=== PATIENT | female | born 1965 | race American Indian/Alaskan Native ===

== ENCOUNTER 2018-04-19 07:29 | Inpatient (IN) | payer MEDICAID, OTHER ==
[2018-04-19 08:00] LABS: Hematocrit 36.7 % (30.3-42.9); Hemoglobin 12.7 gm/dl (10.1-14.3); Mean Corpuscular HGB Conc 35 % (30-34); Mean Corpuscular Volume 105 fl (79-97); Platelet Count 182 K/mm3 (140-440); Red Blood Count 3.49 M/mm3 (3.65-5.03); Red Cell Distribution Width 14.1 % (13.2-15.2)
[2018-04-19] MEDS ORDERED: NACL 0.9% 1000 ML 1,000 ML IV ONE ×2 (08:00→09:40)
--- NOTE | 2018-04-19 08:02 | Emergency Department Report ---
HPI - General Chief Complaint: Arrhythmia/Palpitations Time Seen by Provider: 04/19/18 07:55 - HPI HPI: 52-year-old -[place]ian female presents to the emergency department with complaint of a 24-hour history of right lower back pain. She denies any fall, trauma or any event where she realized she may have injured her back. She has some mild discomfort with urination. Patient also presents with a very fast heart rate and does admit to feeling like her heart is racing. She denies any chest pain but says that sometimes she'll have some mild shortness of breath. She denies any cough, fever, nausea, vomiting. No numbness or paresthesias or any other neurological deficits. She has a past medical history of hypertension. She has a primary care physician but cannot currently remember their name. She denies any tobacco or illicit drug use or abuse. She has not taken anything for her symptoms prior to arrival. ED Past Medical Hx - Past Medical History Previous Medical History?: Yes Hx Hypertension: Yes - Surgical History Past Surgical History?: Yes Additional Surgical History: . tonsillectomy. right toe surgery - Social History Smoking Status: Never Smoker Substance Use Type: Alcohol - Medications Home Medications: Home Medications Medication Instructions Recorded Confirmed Last Taken Type Amlodipine Besylate [Norvasc] 10 mg PO QDAY 04/19/18 04/19/18 Unknown History Megestrol [Megace] 10 ml PO BID 04/19/18 04/19/18 Unknown History medroxyPROGESTERone ACETATE 150 mg IM [id number] 04/19/18 04/19/18 Unknown History [Depo-Provera (Contraception)] ED Review of Systems ROS: Stated complaint: LOWER BACK PAIN Other details as noted in HPI Comment: All other systems reviewed and negative Constitutional: denies: chills, fever Eyes: denies: eye pain, vision change ENT: denies: ear pain, throat pain Respiratory: shortness of breath. denies: cough Cardiovascular: palpitations. denies: chest pain Gastrointestinal: denies: abdominal pain, vomiting Genitourinary: dysuria. denies: discharge Musculoskeletal: back pain. denies: arthralgia Skin: denies: rash, lesions Neurological: denies: headache, weakness, numbness, paresthesias Physical Exam - Physical Exam Vital Signs: Vital Signs 04/19/18 07:38 Temperature 98.0 F Pulse Rate 144 H Respiratory 18 Rate Blood Pressure 144/87 O2 Sat by Pulse 100 Oximetry Physical Exam: GENERAL: The patient is well-developed well-nourished. HEENT: Normocephalic. Atraumatic. Patient has moist mucous membranes. EYES: Extraocular motions are intact. Pupils are equal and reactive to light bilaterally. NECK: Supple. Trachea is midline. CHEST/LUNGS: Clear to auscultation. There is no respiratory distress noted. HEART/CARDIOVASCULAR: Regular. There is moderate no tachycardia. There is no obvious murmur. ABDOMEN: Abdomen is soft, nontender. Patient has normal bowel sounds. There is no abdominal distention. SKIN: Skin is warm and dry. NEURO: The patient is awake, alert, and oriented. The patient is cooperative. The patient has no focal neurologic deficits. The patient has normal speech. Cranial nerves II through XII grossly intact. MUSCULOSKELETAL: There is no tenderness or deformity. There is no limitation range of motion. There is no evidence of acute injury. BACK: No midline thoracic or lumbar tenderness to palpation, step-off or deformity. There is some right lateral back pain at the thoracolumbar junction but it is difficult to reproduce to palpation. ED Course Vital Signs 04/19/18 07:38 Temperature 98.0 F Pulse Rate 144 H Respiratory 18 Rate Blood Pressure 144/87 O2 Sat by Pulse 100 Oximetry ED Medical Decision Making - Lab Data Result diagrams: 04/19/18 07:48 04/19/18 07:48 - EKG Data -: EKG Interpreted by Me EKG shows normal: sinus rhythm, axis, intervals, QRS complexes (LVH), ST-T waves Rate: tachycardia (137 bpm) - EKG Data When compared to previous EKG there are: previous EKG unavailable Interpretation: other (sinus tachycardia at 137 bpm, LVH) - Radiology Data Radiology results: report reviewed, image reviewed interpreted by me: Chest x-ray does not show any pneumothorax, pleural effusion, pneumonia or obvious focal consolidation. X-ray of the lumbar spine does not show any fracture, subluxation or any acute process. CTA CHEST: HISTORY: Short of breath, elevated d-dimer. COMPARISON: none. TECHNIQUE: Helical CT in 1.25mm intervals following IV contrast. Pulmonary embolus protocol. Sagittal and coronal reformatted images. Rotational MIP images. FINDINGS: Contrast bolus is slightly limited. Most of the IV contrast is within the systemic arterial circulation. No large central pulmonary embolus is identified. Resolution in the distal small pulmonary arteries is limited. No gross PE is identified. Thyroid gland: Normal. Tracheobronchial tree: Normal. Esophagus: Normal. Heart: Normal. Pericardium: Normal. Mediastinum: There are multiple partially calcified lymph nodes throughout the right paratracheal chain, AP window chain, subcarinal chain and bilateral hilar chains. Lung Betancourt: Mild peribronchial and paraseptal nodularity is identified in both upper lobes, right greater than left. The lower lobes and middle lobe are within normal limits. There is no evidence for pneumonia or suspicious mass. Pleural Spaces: Normal. Musculoskeletal: Intact. Minimal thoracic spondylosis. IMPRESSION: Slightly limited contrast bolus for pulmonary embolus. No pulmonary embolus is detected. Calcified mediastinal lymph nodes and peribronchial nodularity in the upper lobes is identified which is highly suggestive of sarcoid. Please correlate with the patient's clinical presentation. CT HEAD WITHOUT CONTRAST: HISTORY: Headache. TECHNIQUE: Sequential 2.5mm CT images. COMPARISON: none. FINDINGS: Cerebral Parenchyma: Within normal limits. Cerebellum: Within normal limits. Brainstem: Within normal limits. Ventricles: Normal. Sella: Normal. Extra-axial spaces: Normal. Basal Cisterns: Normal. Intracranial Hemorrhage: None. Midline Shift: None. Calvarium: Normal. Sinuses: Normal. Mastoid Air Cells: Normal. Visualized Orbits: Normal. IMPRESSION: Cranial CT scan within normal limits. Transcribed By: TTR Dictated By: PATRICIO COSTA JR, MD Electronically Authenticated By: PATRICIO COSTA JR, MD Signed Date/Time: 04/19/18 0916 - Medical Decision Making This patient came in with some bilateral back pain and came in with moderate to severe tachycardia that started to cause her some palpitations. She denied any chest pain but had some intermittent shortness of breath with it. Labs were mostly unremarkable Except for a slightly elevated and equivocal d-dimer and later the patient left a urine sample that showed a significant urinary tract infection. At this point a lactic acid was elevated. Patient started on antibiotics and cultures were sent. She complained of a intermittent and ongoing headache and therefore a CT scan of the head was done without contrast that did not show any bleed, shift, mass, ischemia or any other acute process. Because of the slightly elevated d-dimer, CT angiography of the chest was done that did not show any signs of any pulmonary embolism or any other acute processes. During her ED course, the patient developed a fever which may be sec ondary to the urinary tract infection. She continues to have the back pain despite treatment with NSAIDs and other pain medications. Follow these reasons the patient will be admitted to the hospital for further evaluation and treatment and was accepted for admission by the hospitalist, Dr Cuevas. - Differential Diagnosis Pyelonephritis, UTI, Sepsis, Lumbar strain Critical Care Time: Yes Critical care time in (mins) excluding proc time.: 31 Critical care attestation.: If time is entered above; I have spent that time in minutes in the direct care of this critically ill patient, excluding procedure time. Critical care time was spent on this patient in doing her initial evaluation, multiple re-evaluations, ordering and interpretation of labs and imaging, ordering of medications, IVF resuscitation. Critical Care Time: thirty one minutes ED Disposition Clinical Impression: Sepsis Qualifiers: Sepsis type: sepsis due to unspecified organism Qualified Code(s): A41.9 - Sepsis, unspecified organism UTI (urinary tract infection) Qualifiers: Encounter type: initial encounter Low back pain Qualifiers: Chronicity: acute Back pain laterality: right Sciatica presence: without sciatica Qualified Code(s): M54.5 - Low back pain Disposition: OP ADMIT IP TO THIS HOSP Is pt being admited?: Yes Condition: Fair Time of Disposition: 10:13
[2018-04-19 08:19] LABS: BUN/Creatinine Ratio 19; Blood Urea Nitrogen 17 mg/dL (7-17); Calcium 9.6 mg/dL (8.4-10.2); Hemolysis Index 36
[2018-04-19] MEDS ORDERED: K-DUR PO ONE (08:20)
[2018-04-19] MEDS ORDERED: TORADOL IV ONE (08:20)
[2018-04-19] MEDS ORDERED: MORPHINE IV ONE ×3 (08:20→12:00)
[2018-04-19 08:33] LABS: Basophils % (Manual) 0 % (0.0-1.8); Dohle Bodies 1+; Total Cells Counted 100
[2018-04-19 08:34] LABS: Anisocytosis 1+; Platelet Estimate Consistent w Auto; Toxic Vacuolation Few
--- NOTE | 2018-04-19 09:03 | XRay Report ---
AP CHEST: HISTORY: Short of breath AP view of the chest demonstrates a normal mediastinal and cardiac contour with clear lungs and normal bony and soft tissue structures. IMPRESSION: No acute cardiopulmonary findings.
--- NOTE | 2018-04-19 09:17 | XRay Report ---
AP AND LATERAL LUMBOSACRAL SPINE: History: Back pain. The vertebral bodies are well mineralized and normal in alignment and vertebral height with well preserved interspace distances. The visualized portions of the posterior elements are normal. IMPRESSION: Normal study.
--- NOTE | 2018-04-19 09:18 | Cat Scan Report ---
CT HEAD WITHOUT CONTRAST: HISTORY: Headache. TECHNIQUE: Sequential 2.5mm CT images. COMPARISON: none. FINDINGS: Cerebral Parenchyma: Within normal limits. Cerebellum: Within normal limits. Brainstem: Within normal limits. Ventricles: Normal. Sella: Normal. Extra-axial spaces: Normal. Basal Cisterns: Normal. Intracranial Hemorrhage: None. Midline Shift: None. Calvarium: Normal. Sinuses: Normal. Mastoid Air Cells: Normal. Visualized Orbits: Normal. IMPRESSION: Cranial CT scan within normal limits.
--- NOTE | 2018-04-19 09:22 | Cat Scan Report ---
CTA CHEST: HISTORY: Short of breath, elevated d-dimer. COMPARISON: none. TECHNIQUE: Helical CT in 1.25mm intervals following IV contrast. Pulmonary embolus protocol. Sagittal and coronal reformatted images. Rotational MIP images. FINDINGS: Contrast bolus is slightly limited. Most of the IV contrast is within the systemic arterial circulation. No large central pulmonary embolus is identified. Resolution in the distal small pulmonary arteries is limited. No gross PE is identified. Thyroid gland: Normal. Tracheobronchial tree: Normal. Esophagus: Normal. Heart: Normal. Pericardium: Normal. Mediastinum: There are multiple partially calcified lymph nodes throughout the right paratracheal chain, AP window chain, subcarinal chain and bilateral hilar chains. Lung Betancourt: Mild peribronchial and paraseptal nodularity is identified in both upper lobes, right greater than left. The lower lobes and middle lobe are within normal limits. There is no evidence for pneumonia or suspicious mass. Pleural Spaces: Normal. Musculoskeletal: Intact. Minimal thoracic spondylosis. IMPRESSION: Slightly limited contrast bolus for pulmonary embolus. No pulmonary embolus is detected. Calcified mediastinal lymph nodes and peribronchial nodularity in the upper lobes is identified which is highly suggestive of sarcoid. Please correlate with the patient's clinical presentation.
[2018-04-19 09:24] LABS: Albumin 3.9 g/dL (3.9-5); Bilirubin,Direct 0.2 mg/dL (0-0.2)
[2018-04-19 10:47] LABS: Bacteria,Urine 1+ /HPF (Negative); Bilirubin,Urine NEG (Negative); Blood,Urine MOD (Negative); Color,Urine Yellow (Yellow); Urobilinogen,Urine < 2.0 mg/dL (<2.0)
[2018-04-19] MEDS ORDERED: ROCEPHIN/NS 1 GM/50 ML 1 GM/50 ML BAG IV ONE (12:00)
--- NOTE | 2018-04-19 12:51 | History and Physical Report ---
History of Present Illness Chief complaint: My back hurts History of present illness: 52 YO Female with HTN, presents to ED for evaluation. Pt states that she has experienced right flank pain, and right lower back pain over the past 1 day with persistent symptoms over the same time frame. Pt states that pain is 5-8/1 0, associated with dysuria, urgency. Pt seen and evaluated in ED and found to have sepsis secondary to UTI. Pt admitted to medical floor and initiated on sepsis protocol. Pt denies fever chills, CP, Palpitations, NVD, Trauma, BRBPR, productive cough, recent ill contacts. Past History Past Medical History: hypertension Past Surgical History: , Other (toe surgery) Social history: single. denies: smoking, alcohol abuse, prescription drug abuse Family history: hypertension Medications and Allergies Allergies Allergy/AdvReac Type Severity Reaction Status Date / Time No Known Allergies Allergy Unverified 05/22/14 11:43 Home Medications Medication Instructions Recorded Confirmed Last Taken Type Amlodipine Besylate [Norvasc] 10 mg PO QDAY 04/19/18 04/19/18 Unknown History Megestrol [Megace] 10 ml PO BID 04/19/18 04/19/18 Unknown History medroxyPROGESTERone ACETATE 150 mg IM [id number] 04/19/18 04/19/18 Unknown History [Depo-Provera (Contraception)] Review of Systems Constitutional: no weight loss, no weight gain, no fever, no chills Ears, nose, mouth and throat: no ear pain, no ear discharge, no tinnitis, no decreased hearing, no nose pain Breasts: no change in shape, no swelling, no mass Cardiovascular: no chest pain, no orthopnea, no palpitations, no rapid/irregular heart beat, no edema Respiratory: no cough, no cough with sputum, no excessive sputum, no hemoptysis Gastrointestinal: no nausea, no vomiting, no diarrhea, no constipation Genitourinary Female: flank pain, dysuria, urinary frequency, urgency, no pelvic pain, no menorrhagia, no stress incontinence, no nocturia, no vaginal itching, no vaginal discharge, no abnormal vaginal bleeding Rectal: no pain, no incontinence, no bleeding Musculoskeletal: no neck stiffness, no neck pain, no shooting arm pain, no arm numbness/tingling, no low back pain, no shooting leg pain Integumentary: no rash, no pruritis, no redness, no sores, no wounds, no jaundice Neurological: no transient paralysis, no paralysis, no weakness, no numbness, no tingling Psychiatric: no anxiety, no memory loss, no change in sleep habits, no sleep disturbances, no insomnia, no hypersomnia, no change in appetite, no change in libido Endocrine: no cold intolerance, no heat intolerance, no polyphagia, no excessive thirst, no polydipsia, no polyuria Hematologic/Lymphatic: no easy bruising, no easy bleeding, no lymphadenopathy, no lymphedema Allergic/Immunologic: no urticaria, no allergic rhinitis, no wheezing, no persistent infections, no anaphylaxis, no angioedema Exam - Constitutional Vitals: Temp Pulse Resp BP Pulse Ox 99.2 F 116 H 14 119/88 98 04/19/18 10:00 04/19/18 10:00 04/19/18 10:00 04/19/18 10:00 04/19/18 10:00 General appearance: Present: mild distress - EENT Eyes: Present: PERRL ENT: hearing intact, clear oral mucosa - Neck Neck: Present: supple, normal ROM - Respiratory Respiratory effort: normal Respiratory: bilateral: CTA - Cardiovascular Heart Sounds: Present: S1 & S2. Absent: rub, click - Extremities Extremities: pulses symmetrical, No edema Peripheral Pulses: within normal limits - Abdominal General gastrointestinal: Present: soft, non-tender, non-distended, normal bowel sounds Female genitourinary: Present: normal - Integumentary Integumentary: Present: clear, warm, dry - Musculoskeletal Musculoskeletal: gait normal, strength equal bilaterally - Psychiatric Psychiatric: appropriate mood/affect, intact judgment & insight - Neurologic Neurologic: CNII-XII intact, moves all extremities Results - Labs CBC & Chem 7: 04/19/18 07:48 04/19/18 07:48 Labs: Abnormal lab results 04/19/18 04/19/18 04/19/18 Range/Units 07:48 07:48 08:03 RBC 3.49 L (3.65-5.03) M/mm3 MCV 105 H (79-97) fl MCH 37 H (28-32) pg MCHC 35 H (30-34) % Seg Neuts % (Manual) 92.0 H (40.0-70.0) % Lymphocytes % (Manual) 5.0 L (13.4-35.0) % Seg Neutrophils # Man 9.1 H (1.8-7.7) K/mm3 Lymphocytes # (Manual) 0.5 L (1.2-5.4) K/mm3 D-Dimer 301.23 H (0-234) ng/mlDDU Potassium 3.4 L (3.6-5.0) mmol/L Chloride 96.8 L (98-107) mmol/L Glucose 119 H (65-100) mg/dL Ur Specific [place] (1.003-1.030) Urine WBC (Auto) (0.0-6.0) /HPF 04/19/18 Range/Units 10:30 RBC (3.65-5.03) M/mm3 MCV (79-97) fl MCH (28-32) pg MCHC (30-34) % Seg Neuts % (Manual) (40.0-70.0) % Lymphocytes % (Manual) (13.4-35.0) % Seg Neutrophils # Man (1.8-7.7) K/mm3 Lymphocytes # (Manual) (1.2-5.4) K/mm3 D-Dimer (0-234) ng/mlDDU Potassium (3.6-5.0) mmol/L Chloride (98-107) mmol/L Glucose (65-100) mg/dL Ur Specific [place] 1.042 H (1.003-1.030) Urine WBC (Auto) 120.0 H (0.0-6.0) /HPF Assessment and Plan - Patient Problems (1) Sepsis Current Visit: Yes Status: Acute Qualifiers: Sepsis type: sepsis due to unspecified organism Qualified Code(s): A41.9 - Sepsis, unspecified organism Plan to address problem: IV antibiotic therapy, monitor uop q shift, urinalysis, CBC, CMP, blood cultures, serial lactic acid levels, (2) UTI (urinary tract infection) Current Visit: Yes Status: Acute Qualifiers: Encounter type: initial encounter Plan to address problem: IV antibiotic therpay, urinalysis, monitor uop q shift, CBC (3) DVT prophylaxis Current Visit: Yes Status: Acute Plan to address problem: SCD to ble while in bed.
[2018-04-19] MEDS ORDERED: SODIUM CHLORIDE FLUSH SYRINGE 10 ML IV PRN (14:21)
[2018-04-19] MEDS ORDERED: PROVENTIL IH PRN (14:21)
[2018-04-19] MEDS ORDERED: ZOFRAN IV PRN (14:21)
[2018-04-19] MEDS ORDERED: NACL 0.9% 1000 ML IV ONE (14:22)
[2018-04-19] MEDS: TYLENOL PO PRN (14:27)
[2018-04-19] MEDS: MAXIPIME/NS 2 GM/100 ML 2 GM/100 ML BAG IV SCH (18:42)
[2018-04-19] MEDS: PERCOCET 5/325 PO PRN (19:13)
[2018-04-19] MEDS: NORVASC PO SCH (19:14)
[2018-04-20] MEDS: MAXIPIME/NS 2 GM/100 ML 2 GM/100 ML BAG IV SCH ×2 (05:57→17:56)
[2018-04-20] MEDS: PERCOCET 5/325 PO PRN ×2 (05:57→16:42)
--- NOTE | 2018-04-20 08:20 | Ultrasound Report ---
Renal ultrasound: UTI, right flank pain. The renal contour of the right kidney is unremarkable and there is a length of 10.5 cm. There is a small circumscribed hypoechogenicity in the superior pole measuring approximately 11 mm. The echo pattern of the right kidney is not otherwise remarkable. The left renal contour appears normal with normal echogenicity and a length of 11.3 cm. Survey imaging of the urinary bladder is somewhat limited but there is no gross abnormality. Impression: No pathology identified.
[2018-04-20] MEDS ORDERED: LOPRESSOR PO ONE (09:00)
[2018-04-20] MEDS: SODIUM CHLORIDE FLUSH SYRINGE 10 ML IV SCH ×2 (09:01)
[2018-04-20] MEDS: TYLENOL PO PRN ×3 (11:16→22:24)
[2018-04-20] MEDS: NORVASC PO SCH (11:17)
--- NOTE | 2018-04-20 16:13 | Progress Note ---
Assessment and Plan Patient Problems (1) Sepsis Current Visit: Yes Status: Acute Qualifiers: Sepsis type: sepsis due to unspecified organism Qualified Code(s): A41.9 - Sepsis, unspecified organism Plan to address problem: IV antibiotic therapy, monitor uop q shift, urinalysis, CBC, CMP, blood cultures, serial lactic acid levels, (2) UTI (urinary tract infection) Current Visit: Yes Status: Acute Qualifiers: Encounter type: initial encounter Plan to address problem: IV antibiotic therpay, urinalysis, monitor uop q shift, CBC (3) DVT prophylaxis Current Visit: Yes Status: Acute Plan to address problem: SCD to ble while in bed. Subjective Date of service: 04/20/18 Principal diagnosis: Sepsis,UTI Interval history: Doing better Objective - Constitutional Vitals: Vital Signs - 12hr 04/20/18 04/20/18 04/20/18 05:51 05:57 08:59 Temperature 98.9 F Pulse Rate 147 H 139 H Respiratory 20 20 Rate Blood Pressure 149/101 118/90 O2 Sat by Pulse 99 Oximetry 04/20/18 04/20/18 04/20/18 10:59 11:05 11:17 Temperature 101.1 F H Pulse Rate 177 H 117 H 117 H Respiratory 16 Rate Blood Pressure 125/90 125/90 O2 Sat by Pulse 86 Oximetry General appearance: Present: no acute distress, well-nourished - EENT Eyes: PERRL, EOM intact ENT: hearing intact, clear oral mucosa Ears: bilateral: normal - Neck Neck: supple, normal ROM - Respiratory Respiratory effort: normal Respiratory: bilateral: CTA - Breasts Breasts: normal - Cardiovascular Heart rate: 78 Rhythm: regular Heart Sounds: Present: S1 & S2. Absent: gallop, rub Extremities: no ischemia, pulses intact, No edema, normal color, Full ROM - Gastrointestinal General gastrointestinal: Present: soft, non-tender, non-distended, normal bowel sounds - Genitourinary Female genitourinary: normal - Integumentary Integumentary: clear, warm, dry - Musculoskeletal Musculoskeletal: 1, strength equal bilaterally - Neurologic Neurologic: moves all extremities - Psychiatric Psychiatric: memory intact, appropriate mood/affect, intact judgment & insight - Labs CBC & Chem 7: 04/19/18 07:48 04/19/18 07:48 Labs: Abnormal lab results 04/19/18 Range/Units 17:29 Lactic Acid 2.20 H* (0.7-2.0) mmol/L
[2018-04-20] MEDS ORDERED: NACL 0.9% 1000 ML 1,000 ML IV ONE (17:42)
[2018-04-20] MEDS ORDERED: VANCOMYCIN 1,250 MG in NACL 0.9% 250ML 250 ML IV ONE (18:00)
[2018-04-20] MEDS ORDERED: VANCOMYCIN PHARMACY TO DOSE IV SCH (18:00)
[2018-04-20] MEDS: DILAUDID IV PRN (22:36)
[2018-04-21] MEDS: VANCOMYCIN 750 MG in NACL 0.9% 250ML 250 ML IV SCH ×2 (05:00→17:39)
[2018-04-21] MEDS: TYLENOL PO PRN (05:22)
[2018-04-21] MEDS: DILAUDID IV PRN (05:38)
[2018-04-21 05:53] LABS: Hematocrit 30.5 % (30.3-42.9); Hemoglobin 10.6 gm/dl (10.1-14.3); Mean Corpuscular HGB Conc 35 % (30-34); Mean Corpuscular Volume 104 fl (79-97); Platelet Count 114 K/mm3 (140-440); Red Blood Count 2.93 M/mm3 (3.65-5.03); Red Cell Distribution Width 14.4 % (13.2-15.2)
[2018-04-21] MEDS: MAXIPIME/NS 2 GM/100 ML 2 GM/100 ML BAG IV SCH ×2 (06:04→21:25)
[2018-04-21 06:17] LABS: Alanine Aminotransferase 10 units/L (7-56); Albumin 2.8 g/dL (3.9-5); BUN/Creatinine Ratio 16; Blood Urea Nitrogen 14 mg/dL (7-17); Calcium 8.4 mg/dL (8.4-10.2); Hemolysis Index 19
[2018-04-21] MEDS: PERCOCET 5/325 PO PRN ×3 (07:02→20:02)
[2018-04-21 07:48] LABS: Total Cells Counted 100
[2018-04-21 07:49] LABS: Anisocytosis 1+; Band Neutrophils # (Manual) 1.6 K/mm3; Basophils % (Manual) 0 % (0.0-1.8); Ovalocytes Rare; Platelet Estimate Consistent w Auto
[2018-04-21] MEDS ORDERED: K-DUR PO ONE ×2 (07:51→07:59)
[2018-04-21] MEDS: NORVASC PO SCH (09:34)
[2018-04-21] MEDS: SODIUM CHLORIDE FLUSH SYRINGE 10 ML IV SCH ×2 (13:23→13:24)
--- NOTE | 2018-04-21 14:53 | Progress Note ---
Assessment and Plan Patient Problems (1) Sepsis Current Visit: Yes Status: Acute Qualifiers: Sepsis type: sepsis due to unspecified organism Qualified Code(s): A41.9 - Sepsis, unspecified organism Plan to address problem: IV antibiotic therapy, monitor uop q shift, urinalysis, CBC, CMP, blood cultures, serial lactic acid levels, (2) UTI (urinary tract infection) Current Visit: Yes Status: Acute Qualifiers: Encounter type: initial encounter Plan to address problem: IV antibiotic therpay, urinalysis, monitor uop q shift, CBC (3) Hypokalemia Supplemented (4) DVT prophylaxis Current Visit: Yes Status: Acute Plan to address problem: SCD to ble while in bed. Subjective Date of service: 04/21/18 Principal diagnosis: Sepsis,UTI Interval history: Doing better Objective - Constitutional Vitals: Vital Signs - 12hr 04/21/18 04/21/18 04/21/18 05:22 05:32 05:38 Temperature 98.2 F Pulse Rate Respiratory 20 20 20 Rate Blood Pressure 144/84 O2 Sat by Pulse Oximetry 04/21/18 04/21/18 06:30 11:32 Temperature 100.7 F H 98.0 F Pulse Rate 127 H Respiratory 18 Rate Blood Pressure 135/99 O2 Sat by Pulse 95 Oximetry General appearance: Present: no acute distress, well-nourished - EENT Eyes: PERRL, EOM intact ENT: hearing intact, clear oral mucosa Ears: bilateral: normal - Neck Neck: supple, normal ROM - Respiratory Respiratory effort: normal Respiratory: bilateral: CTA - Breasts Breasts: normal - Cardiovascular Rhythm: regular Heart Sounds: Present: S1 & S2. Absent: gallop, rub Extremities: pulses intact, No edema, normal color, Full ROM - Gastrointestinal General gastrointestinal: Present: soft, non-tender, non-distended, normal bowel sounds - Genitourinary Female genitourinary: normal - Integumentary Integumentary: clear, warm, dry - Musculoskeletal Musculoskeletal: 1, strength equal bilaterally - Neurologic Neurologic: moves all extremities - Psychiatric Psychiatric: memory intact, appropriate mood/affect, intact judgment & insight - Labs CBC & Chem 7: 04/21/18 05:18 04/21/18 05:18 Labs: Abnormal lab results 04/21/18 04/21/18 Range/Units 05:18 05:18 RBC 2.93 L (3.65-5.03) M/mm3 MCV 104 H (79-97) fl MCH 36 H (28-32) pg MCHC 35 H (30-34) % Plt Count 114 L (140-440) K/mm3 Lymphocytes % (Manual) 3.0 L (13.4-35.0) % Lymphocytes # (Manual) 0.2 L (1.2-5.4) K/mm3 Sodium 131 L (137-145) mmol/L Potassium 2.9 L* (3.6-5.0) mmol/L Chloride 96.8 L (98-107) mmol/L Carbon Dioxide 18 L (22-30) mmol/L Albumin 2.8 L (3.9-5) g/dL
[2018-04-21] MEDS ORDERED: K-DUR PO SCH (15:00)
[2018-04-21] MEDS: KCL 10MEQ/100ML 10 MEQ/100 ML BAG IV SCH ×2 (18:48→18:51)
[2018-04-21] MEDS ORDERED: MILK OF MAGNESIA PO PRN (19:15)
[2018-04-22] MEDS ORDERED: DILAUDID IV PRN (01:00)
[2018-04-22] MEDS: SODIUM CHLORIDE FLUSH SYRINGE 10 ML IV SCH (02:14)
[2018-04-22 05:20] LABS: Hematocrit 32.5 % (30.3-42.9); Hemoglobin 11.2 gm/dl (10.1-14.3); Mean Corpuscular HGB Conc 34 % (30-34); Mean Corpuscular Volume 104 fl (79-97); Platelet Count 149 K/mm3 (140-440); Red Blood Count 3.12 M/mm3 (3.65-5.03); Red Cell Distribution Width 14.9 % (13.2-15.2)
[2018-04-22 05:26] LABS: Alanine Aminotransferase 13 units/L (7-56); Albumin 3.1 g/dL (3.9-5); BUN/Creatinine Ratio 22; Blood Urea Nitrogen 22 mg/dL (7-17); Calcium 8.9 mg/dL (8.4-10.2); Hemolysis Index 15
[2018-04-22] MEDS: PERCOCET 5/325 PO PRN (06:08)
[2018-04-22] MEDS: MAXIPIME/NS 2 GM/100 ML 2 GM/100 ML BAG IV SCH (06:09)
[2018-04-22] MEDS: VANCOMYCIN 750 MG in NACL 0.9% 250ML 250 ML IV SCH (06:09)
[2018-04-22 06:41] LABS: Band Neutrophils # (Manual) 1.1 K/mm3; Basophils % (Manual) 0 % (0.0-1.8); Total Cells Counted 100
[2018-04-22 06:42] LABS: Macrocytosis 1+; Platelet Estimate Consistent w Auto
[2018-04-22] MEDS: NORVASC PO SCH (10:50)
[2018-04-22 10:53] VITALS: BP 150/102
--- NOTE | 2018-04-22 13:04 | Discharge Summary ---
Providers - Providers Date of Admission: 04/19/18 14:21 Date of discharge: 04/22/18 Attending physician: DAVIDA ALVARADO Primary care physician: MIKY APONTE Hospitalization Condition: Fair Hospital course: Patient Problems (1) Sepsis Current Visit: Yes Status: Acute Qualifiers: Sepsis type: sepsis due to unspecified organism Qualified Code(s): A41.9 - Sepsis, unspecified organism Plan to address problem: Resolved Patient adamant about going home. Will sign AMA if not discharged today (2) UTI (urinary tract infection) Current Visit: Yes Status: Acute Qualifiers: Encounter type: initial encounter Plan to address problem: Discharge on PO Abx (3) Hypokalemia Corrected Disposition: DC- TO HOME OR SELFCARE Core Measure Documentation - Palliative Care Palliative Care/ Comfort Measures: Not Applicable - Core Measures Any of the following diagnoses?: none Exam - Constitutional Vitals: Temp Pulse Resp BP Pulse Ox 99.4 F 128 H 18 150/102 98 04/22/18 06:09 04/22/18 10:50 04/22/18 06:09 04/22/18 10:50 04/22/18 09:02 General appearance: Present: no acute distress, well-nourished - EENT Eyes: Present: PERRL ENT: hearing intact, clear oral mucosa - Neck Neck: Present: supple, normal ROM - Respiratory Respiratory effort: normal Respiratory: bilateral: CTA - Cardiovascular Heart rate: 78 Rhythm: regular Heart Sounds: Present: S1 & S2. Absent: rub, click - Extremities Extremities: no ischemia, pulses intact, pulses symmetrical, No edema Peripheral Pulses: within normal limits - Abdominal General gastrointestinal: Present: soft, non-tender, non-distended, normal bowel sounds Female genitourinary: Present: normal - Rectal Rectal Exam: deferred - Integumentary Integumentary: Present: clear, warm, dry - Musculoskeletal Musculoskeletal: gait normal, strength equal bilaterally - Psychiatric Psychiatric: appropriate mood/affect, intact judgment & insight - Neurologic Neurologic: CNII-XII intact, moves all extremities - Allied Health Allied health notes reviewed: nursing, case management Plan Activity: no restrictions Diet: regular Follow up with: MIKY APONTE MD [Primary Care Provider] - 3-5 Days
== END 2018-04-22 14:09 | disposition home or self-care (01) | DRG 872 ==
LOC: ED 07:29 → 3A 14:21
PROVIDERS: ADMIT Internal Medicine; ATTEND Internal Medicine
DX: A41.9 Sepsis, unspecified organism (principal); N39.0 Urinary tract infection, site not specified; E87.6 Hypokalemia; I10 Essential (primary) hypertension; Z82.49 Family history of ischemic heart disease and other diseases of the circulatory system
CPT/HCPCS: 36415; 70450; 71045; 71275; 72100; 76770; 80048; 80053; 80076; 81001; 82140; 84132; 84443; 84484; 84703; 85007; 85025; 85379; 87040; 87076; 87086; 87186; 93005; 93010; 96361; 96365; 96375; 96376; G0378; J0692; J0696; J1170; J1885; J2270; J3370; J3480; J7030; J7050; Q9967

== ENCOUNTER 2019-04-20 13:23 | Emergency (ER) | payer SELFPAY ==
--- NOTE | 2019-04-20 15:26 | Event Note ---
ED Screening Note Date of service: 04/20/19 Time: 15:23 ED Screening Note: 53 y/o female comes in for 1 month of headache. Has been off blood pressure for 3 weeks. Reports that she has no insurance. This initial assessment/diagnostic orders/clinical plan/treatment(s) is/are subject to change based on patients health status, clinical progression and re- assessment by fellow clinical providers in the ED. Further treatment and workup at subsequent clinical providers discretion. Patient/guardian urged not to elope from the ED as their condition may be serious if not clinically assessed and managed. Initial orders include:
[2019-04-20 15:27] VITALS: BP 143/103
--- NOTE | 2019-04-20 15:36 | Emergency Department Report ---
Chief Complaint: Headache Stated Complaint: HEADACHE/NOT EATING Time Seen by Provider: 04/20/19 15:23 - HPI History of Present Illness: 53 y/o female comes in for 1 month of headache. Has been off blood pressure for 3 weeks. Reports that she has no insurance. - Exam Vital Signs: Vital Signs 04/20/19 15:25 Temperature 98.0 F Pulse Rate 78 Respiratory 18 Rate Blood Pressure 143/103 O2 Sat by Pulse 100 Oximetry Physical Exam: AxO time 3 NAD HEENT Mouth moist gold teeth, Ears bilateral normal Neuro: EMOI, PERRL, finger to nose intact,no tongue deviation, rapid eye movemen t intact, Heel to esparza, Rhomberg intact, normal gait. MSE screening note: Focused history and physical exam performed. Due to findings the following was ordered: 53 y/o female comes in for 1 month of headache. Has been off blood pressure for 3 weeks. Reports that she has no insurance. ED Disposition for MSE Clinical Impression: Headache, HTN (hypertension), Non compliance w medication regimen Disposition: MED SCREENING EXAM-LEFT Is pt being admited?: No Does the pt Need Aspirin: No Condition: Stable Instructions: Hypertension (ED) Prescriptions: amLODIPine 5 mg PO DAILY 14 Days #14 tab Referrals: PATRICA STOUT MD [Staff Physician] - 3-5 Days
== END 2019-04-20 16:18 | disposition left against medical advice (07) ==
LOC: ED 13:23
DX: R51 Headache (principal); I10 Essential (primary) hypertension
CPT/HCPCS: 99282

== ENCOUNTER 2019-07-02 19:25 | Emergency (ER) | payer MEDICAID ==
--- NOTE | 2019-07-02 19:37 | Event Note ---
ED Screening Note Date of service: 07/02/19 Time: 19:32 ED Screening Note: This initial assessment/diagnostic orders/clinical plan/treatment(s) is/are subject to change based on patients health status, clinical progression and re- assessment by fellow clinical providers in the ED. Further treatment and workup at subsequent clinical providers discretion. Patient/guardian urged not to elope from the ED as their condition may be serious if not clinically assessed and managed. Initial orders include: 53 yo F states that has intermittent cramping of her feet and hands x 2 months. She further states that her white portion of her eyes seems to be discolored along with her fingernails.
[2019-07-02 19:57] VITALS: BP 128/91
[2019-07-02 20:34] LABS: Hematocrit 36.3 % (30.3-42.9); Hemoglobin 12.5 gm/dl (10.1-14.3); Mean Corpuscular HGB Conc 34 % (30-34); Mean Corpuscular Volume 100 fl (79-97); Platelet Count 244 K/mm3 (140-440); Red Blood Count 3.62 M/mm3 (3.65-5.03)
[2019-07-02 20:54] LABS: Alanine Aminotransferase 27 units/L (7-56); Albumin 4.9 g/dL (3.9-5); BUN/Creatinine Ratio 6; Blood Urea Nitrogen 3 mg/dL (7-17); Calcium 9.8 mg/dL (8.4-10.2); Hemolysis Index 4
[2019-07-02] MEDS ORDERED: SODIUM CHLORIDE 0.9% 1000 ML 1,000 ML IV ONE (21:01)
[2019-07-02] MEDS ORDERED: ONDANSETRON 4 MG/2 ML INJ IV ONE (21:01)
[2019-07-02] MEDS ORDERED: MORPHINE 4 MG/1 ML INJ IV ONE (21:42)
[2019-07-02] MEDS ORDERED: D5W/0.9% NACL 1,000 ML IV SCH (22:00)
--- NOTE | 2019-07-02 22:24 | Emergency Department Report ---
ED General Adult HPI - General Chief complaint: Extremity Problem,Nontraumatic Stated complaint: PAIN IN HANDS AND FEET Time Seen by Provider: 07/02/19 21:00 Source: patient Mode of arrival: Ambulatory Limitations: No Limitations - History of Present Illness Initial comments: Ms. Hinkle is a 53-year-old -[place] female who presents for generalized malaise body aches and abdominal pain with nausea x1 week. She denies vomiting, fever. States history of the same. States she just feels tired. Symptoms are exacerbated by activity. Symptoms are relieved by nothing. Patient is tolerating p.o. intake at this time without nausea vomiting. Her presents complaint is extremity cramping and aching. Onset/Timin -: month(s) Location: upper extremity, lower extremity Radiation: extremity Severity scale (0 -10): 6 Quality: aching, other (cramping ) Consistency: constant Improves with: none Worsens with: none Associated Symptoms: loss of appetite, malaise. denies: chest pain, cough, diaphoresis, fever/chills, headaches, nausea/vomiting, shortness of breath, syncope, weakness Treatments Prior to Arrival: none - Related Data Home Medications Medication Instructions Recorded Confirmed Last Taken Amlodipine Besylate [Norvasc] 10 mg PO QDAY 04/19/18 04/19/18 Unknown Previous Rx's Medication Instructions Recorded Last Taken Type Nitrofurantoin Monohyd/M-Cryst 100 mg PO BID #20 capsule 04/22/18 Unknown Rx [Macrobid 100 mg Capsule] Oxycodone HCl/Acetaminophen 1 each PO Q6HR PRN #16 tablet 04/22/18 Unknown Rx [Percocet 7.5/325 mg] amLODIPine 5 mg PO DAILY 14 Days #14 tab 04/20/19 Unknown Rx Ibuprofen [Motrin 800 MG tab] 800 mg PO Q8HR PRN #30 tablet 07/03/19 Unknown Rx Allergies Allergy/AdvReac Type Severity Reaction Status Date / Time No Known Allergies Allergy Unverified 05/22/14 11:43 ED Review of Systems ROS: Stated complaint: PAIN IN HANDS AND FEET Other details as noted in HPI Constitutional: denies: chills, fever Eyes: denies: eye pain, eye discharge, vision change ENT: denies: ear pain, throat pain Respiratory: denies: cough, shortness of breath, wheezing Cardiovascular: denies: chest pain, palpitations Endocrine: no symptoms reported Gastrointestinal: as per HPI, abdominal pain, nausea. denies: vomiting, melena Genitourinary: denies: urgency, dysuria, discharge Musculoskeletal: back pain, myalgia. denies: joint swelling, arthralgia Skin: denies: rash, lesions Neurological: as per HPI. denies: headache, weakness, numbness, paresthesias, confusion, vertigo Psychiatric: anxiety Hematological/Lymphatic: denies: easy bleeding, easy bruising ED Past Medical Hx - Past Medical History Previous Medical History?: Yes Hx Hypertension: Yes - Surgical History Additional Surgical History: . tonsillectomy. right toe surgery - Social History Smoking Status: Never Smoker Substance Use Type: Alcohol - Medications Home Medications: Home Medications Medication Instructions Recorded Confirmed Last Taken Type Amlodipine Besylate [Norvasc] 10 mg PO QDAY 04/19/18 04/19/18 Unknown History Nitrofurantoin Monohyd/M-Cryst 100 mg PO BID #20 capsule 04/22/18 Unknown Rx [Macrobid 100 mg Capsule] Oxycodone HCl/Acetaminophen 1 each PO Q6HR PRN #16 tablet 04/22/18 Unknown Rx [Percocet 7.5/325 mg] amLODIPine 5 mg PO DAILY 14 Days #14 tab 04/20/19 Unknown Rx Ibuprofen [Motrin 800 MG tab] 800 mg PO Q8HR PRN #30 tablet 07/03/19 Unknown Rx ED Physical Exam - General Limitations: No Limitations General appearance: alert, in no apparent distress - Head Head exam: Present: atraumatic, normocephalic - Eye Eye exam: Present: normal appearance, PERRL, EOMI Pupils: Present: normal accommodation - ENT ENT exam: Present: normal exam, mucous membranes moist - Neck Neck exam: Present: normal inspection, full ROM. Absent: tenderness, lymphadenopathy, thyromegaly - Respiratory Respiratory exam: Present: normal lung sounds bilaterally. Absent: respiratory distress, wheezes, stridor, chest wall tenderness - Cardiovascular Cardiovascular Exam: Present: normal rhythm, tachycardia, normal heart sounds. Absent: systolic murmur, diastolic murmur, rubs, gallop - GI/Abdominal GI/Abdominal exam: Present: soft, normal bowel sounds. Absent: distended, tenderness (ruq ), guarding, rebound, rigid, bruit, hernia - Rectal Rectal exam: Present: deferred - Extremities Exam Extremities exam: Present: normal inspection - Back Exam Back exam: Present: normal inspection, full ROM. Absent: tenderness, CVA tenderness (R), CVA tenderness (L), vertebral tenderness - Neurological Exam Neurological exam: Present: alert, oriented X3, CN II-XII intact, normal gait, reflexes normal. Absent: motor sensory deficit - Expanded Neurological Exam Expanded Patient oriented to: Present: person, place, time Speech: Present: fluid speech Sensory exam: Upper Extremity Light Touch: Normal, Upper Extremity Pin Prick: Normal, Upper Extremity Temperature: Normal, Lower Extremity Light Touch: Normal, Lower Extremity Pin Prick: Normal, Lower Extremity Temperature: Normal Motor strength exam: RUE: 5, LUE: 5, RLE: 5, LLE: 5 DTR: bicep (R): 2+, bicep (L): 2+, ankle (R): 2+, ankle (L): 2+ Best Eye Response (Jareth): (4) open spontaneously Best Motor Response (Jareth): (6) obeys commands Best Verbal Response (Jareth): (2) incomprehsible sounds Jareth Total: 12 - Psychiatric Psychiatric exam: Present: normal affect, normal mood - Skin Skin exam: Present: warm, dry, intact, normal color ED Course Vital Signs 07/02/19 07/02/19 19:26 21:58 Temperature 98.7 F Pulse Rate 109 H Respiratory 20 18 Rate Blood Pressure 128/91 [Right] O2 Sat by Pulse 98 Oximetry ED Medical Decision Making - Lab Data Result diagrams: 07/02/19 20:02 07/02/19 20:02 Labs 07/02/19 07/02/19 07/02/19 20:02 20:02 20:52 WBC 3.4 L RBC 3.62 L Hgb 12.5 Hct 36.3 MCV 100 H MCH 35 H MCHC 34 RDW 14.0 Plt Count 244 Sodium 126 L Potassium 3.7 Chloride 87.1 L Carbon Dioxide 20 L Anion Gap 23 BUN 3 L Creatinine 0.5 L Estimated GFR > 60 BUN/Creatinine Ratio 6 Glucose 85 Calcium 9.8 Total Bilirubin 0.50 AST 100 H ALT 27 Alkaline Phosphatase 149 H Troponin T Total Protein 8.2 Albumin 4.9 Albumin/Globulin Ratio 1.5 Lipase 68 H Urine Color Urine Turbidity Urine pH Ur Specific [place] Urine Protein Urine Glucose (UA) Urine Ketones Urine Blood Urine Nitrite Urine Bilirubin Urine Urobilinogen Ur Leukocyte Esterase Urine WBC (Auto) Urine RBC (Auto) Urine Bacteria (Auto) Urine HCG, Qual 07/02/19 07/02/19 20:52 23:35 WBC RBC Hgb Hct MCV MCH MCHC RDW Plt Count Sodium Potassium Chloride Carbon Dioxide Anion Gap BUN Creatinine Estimated GFR BUN/Creatinine Ratio Glucose Calcium Total Bilirubin AST ALT Alkaline Phosphatase Troponin T < 0.010 Total Protein Albumin Albumin/Globulin Ratio Lipase Urine Color Colorless Urine Turbidity Clear Urine pH 6.0 Ur Specific [place] 1.002 L Urine Protein <15 mg/dl Urine Glucose (UA) Neg Urine Ketones Neg Urine Blood Sm Urine Nitrite Neg Urine Bilirubin Neg Urine Urobilinogen < 2.0 Ur Leukocyte Esterase Neg Urine WBC (Auto) < 1.0 Urine RBC (Auto) 1.0 Urine Bacteria (Auto) 1+ Urine HCG, Qual Negative - EKG Data EKG shows normal: sinus rhythm, axis, intervals, QRS complexes, ST-T waves Rate: normal - EKG Data Interpretation: normal EKG, unchanged when compared t (04/20/2018) - Radiology Data Radiology results: report reviewed, image reviewed Findings Reporting MD: Basilio Quach Dictation Time: July 02, 2019 23:56 Radio Script Writer: Not available Security System Analyst Date: CT ABDOMEN AND PELVIS WITH CONTRAST INDICATION / CLINICAL INFORMATION: Elevated Liver Enzymes, Nail and Skin Discoloration, otherwise asymptomatic. Omnipaque 300 / 100ml's was used for this exam. Hx of Fibroid Tumors.. TECHNIQUE: Axial CT images were obtained through the abdomen and pelvis after IV contrast. All CT scans at this location are performed using CT dose reduction for ALARA by means of automated exposure control. COMPARISON: None available. FINDINGS: LOWER CHEST: No significant abnormality. LIVER: Liver appears diffusely hypodense characteristic of fatty infiltration. Focal fatty deposition along the falciform ligament. GALLBLADDER: No significant abnormality. BILE DUCTS: No significant abnormality. PANCREAS: No significant abnormality. SPLEEN: No significant abnormality. ADRENALS: No significant abnormality. RIGHT KIDNEY and URETER: No significant abnormality. LEFT KIDNEY and URETER: No significant abnormality. STOMACH and SMALL BOWEL: No significant abnormality. COLON: No significant abnormality. APPENDIX: No significant abnormality. PERITONEUM: No free fluid. No free air. No fluid collection. LYMPH NODES: No significant adenopathy. AORTA and ARTERIES: No significant abnormality. IVC and VEINS: No significant abnormality. URINARY BLADDER: No significant abnormality. REPRODUCTIVE ORGANS: Uterus is enlarged containing several calcified fibroids. ADDITIONAL FINDINGS: None. SKELETAL SYSTEM: No significant abnormality. IMPRESSION: 1. No inflammatory process or bowel obstruction. 2. Hepatic steatosis. 3. Enlarged uterus containing several fibroids. - Medical Decision Making CT abdomen and pelvis: Fatty liver disease, no acute abdominal findings, multiple intrauterine fibroids. This is a chronic finding for this patient. All pain is resolved patient states pain is now 1/10. She is tolerating p.o. intake without nausea vomiting. Patient has a total of 1 L normal saline 1 L of D5 normal saline EKG demonstrates normal sinus rhythm no ST elevated NM, EKG interpreted by ED attending. labs noted as above, DC'd to home in stable condition she will follow-up with PCP in 2 to 3 days. pt verbalized agreement and understanding of discharge plan. Critical care attestation.: If time is entered above; I have spent that time in minutes in the direct care of this critically ill patient, excluding procedure time. ED Disposition Clinical Impression: Fibroid, Mild dehydration Disposition: DC-01 TO HOME OR SELFCARE Is pt being admited?: No Does the pt Need Aspirin: No Condition: Stable Instructions: Dehydration (ED), Uterine Fibroids (ED) Prescriptions: Ibuprofen [Motrin 800 MG tab] 800 mg PO Q8HR PRN #30 tablet PRN Reason: pain Referrals: JOSE DAVILA MD [Staff Physician] - 3-5 Days [facility] [Provider Group] - 3-5 Days Forms: Work/School Release Form(ED) Time of Disposition: 01:37
[2019-07-03 00:07] LABS: Bacteria,Urine 1+ /HPF (Negative); Bilirubin,Urine NEG (Negative); Blood,Urine SM (Negative); Color,Urine Colorless (Yellow); Protein,Urine <15 mg/dL mg/dL (Negative); Urobilinogen,Urine < 2.0 mg/dL (<2.0); WBC,Urine < 1.0 /HPF (0.0-6.0)
[2019-07-03 00:08] LABS: HCG Qualitative,Urine Negative (Negative)
--- NOTE | 2019-07-03 01:00 | Cat Scan Report ---
CT ABDOMEN AND PELVIS WITH CONTRAST INDICATION / CLINICAL INFORMATION: Elevated Liver Enzymes, Nail and Skin Discoloration, otherwise asymptomatic. Omnipaque 300 / 100ml's was used for this exam. Hx of Fibroid Tumors.. TECHNIQUE: Axial CT images were obtained through the abdomen and pelvis after IV contrast. All CT scans at this location are performed using CT dose reduction for ALARA by means of automated exposure control. COMPARISON: None available. FINDINGS: LOWER CHEST: No significant abnormality. LIVER: Liver appears diffusely hypodense characteristic of fatty infiltration. Focal fatty deposition along the falciform ligament. GALLBLADDER: No significant abnormality. BILE DUCTS: No significant abnormality. PANCREAS: No significant abnormality. SPLEEN: No significant abnormality. ADRENALS: No significant abnormality. RIGHT KIDNEY and URETER: No significant abnormality. LEFT KIDNEY and URETER: No significant abnormality. STOMACH and SMALL BOWEL: No significant abnormality. COLON: No significant abnormality. APPENDIX: No significant abnormality. PERITONEUM: No free fluid. No free air. No fluid collection. LYMPH NODES: No significant adenopathy. AORTA and ARTERIES: No significant abnormality. IVC and VEINS: No significant abnormality. URINARY BLADDER: No significant abnormality. REPRODUCTIVE ORGANS: Uterus is enlarged containing several calcified fibroids. ADDITIONAL FINDINGS: None. SKELETAL SYSTEM: No significant abnormality. IMPRESSION: 1. No inflammatory process or bowel obstruction. 2. Hepatic steatosis. 3. Enlarged uterus containing several fibroids. Signer Name: Basilio Quach MD Signed: 07/03/2019 12:56 AM Workstation Name: [id number]
== END 2019-07-03 01:50 | disposition home or self-care (01) ==
LOC: ED 19:25
DX: E86.0 Dehydration (principal); D21.9 Benign neoplasm of connective and other soft tissue, unspecified; I10 Essential (primary) hypertension; F41.9 Anxiety disorder, unspecified; M54.9 Dorsalgia, unspecified; R10.9 Unspecified abdominal pain
CPT/HCPCS: 36415; 74177; 80053; 81001; 81025; 83690; 84484; 85027; 96361; 96374; 96375; 99284; J2270; J2405; J7030; J7042; Q9967